=== PATIENT | male | born 1975 | race Caucasian/White ===

== ENCOUNTER 2021-09-26 14:34 | Emergency (ER) | payer OTHER ==
[2021-09-26 14:43] VITALS: RESP 20; BMI 29.5
[2021-09-26] MEDS ORDERED: ACETAMINOPHEN 500 MG TABLET (FP) PO ONE (15:14)
[2021-09-26] MEDS ORDERED: ACETAMINOPHEN 325 MG TABLET (FP) ONE (15:15)
[2021-09-26 16:57] VITALS: BP 115/62; PULSE 102; TEMP 101.6
[2021-09-26] MEDS ORDERED: SODIUM CHLORIDE 0.9% 500 ML INFUS.BAG IV ONE (17:17)
[2021-09-26 18:36] LABS: EPI CELLS 12 /uL (0-25.1); HYALINE CASTS 2 /uL (0-3.1); URINE APPEARANCE CLEAR; URINE BACTERIA 5 /uL (0-1359); URINE BILIRUBIN NEGATIVE (NEGATIVE); URINE COLOR YELLOW; URINE GLUCOSE (UA) NEGATIVE (NEGATIVE); URINE KETONE TRACE (NEGATIVE); URINE LEUK ESTERASE TRACE (NEGATIVE); URINE NITRITE NEGATIVE (NEGATIVE); URINE PROTEIN 1+ (NEGATIVE); URINE RBC 8 /uL (0-23.9); URINE WBC 56 /uL (0-25.8)
[2021-09-26] MEDS ORDERED: AZITHROMYCIN IVPB 500 MG/250 ML BAG IVPB ONE (18:43)
[2021-09-26 19:00] LABS: BASO % 0.2 % (0-2.0); EOS % 0.2 % (0-4.5); HEMATOCRIT 45.3 % (35.4-49); HEMOGLOBIN 15.3 GM/dL (11.7-16.9); LYMPH % 12.5 % (8-40); MCH 30.2 pg (25.7-33.7); MCHC 33.8 g/dl (32.0-35.9); MEAN CELL VOLUME 89.4 fl (80-96); MEAN PLT VOLUME 8.6 fl (7.5-11.1); NEUT % 78.1 % (42.8-82.8); PLATELET COUNT 236 10^3/uL (134-434); RBC 5.07 M/mm3 (4.00-5.60); RDW 14.2 % (11.9-15.9); WHITE BLOOD COUNT 16.1 K/mm3 (4.0-10.0)
[2021-09-26 19:03] LABS: INR 1.14 (0.83-1.09); PROTHROMBIN TIME (PATIENT) 13.1 SEC (9.7-13.0); VENOUS BASE EXCESS 1.4 mmol/L (-2-2); VENOUS O2 SATURATION 69.9 % (70-80); VENOUS PCO2 39.9 mmHg (38-52); VENOUS PH 7.428 (7.310-7.410)
[2021-09-26 19:05] LABS: ACTIVATED PTT 29.3 SECONDS (25.2-36.5)
[2021-09-26 19:16] LABS: CHLORIDE 107 mmol/L (98-107); SODIUM 140 mmol/L (136-145)
[2021-09-26 19:18] LABS: CALCIUM 8.6 mg/dL (8.5-10.1)
[2021-09-26 19:19] LABS: ALBUMIN 3.2 g/dl (3.4-5.0); ANION GAP 7 MMOL/L (8-16); BLOOD UREA NITROGEN 13.7 mg/dL (7-18); CO2 26 mmol/L (21-32); GLUCOSE,RANDOM 93 mg/dL (74-106)
[2021-09-26 19:22] LABS: CREATININE 1.1 mg/dL (0.55-1.3); SGOT/AST 23 U/L (15-37); SGPT/ALT 35 U/L (13-61)
[2021-09-26 19:24] LABS: BILIRUBIN,TOTAL 0.4 mg/dL (0.2-1); TOT PROT 7.5 g/dl (6.4-8.2)
[2021-09-26 19:25] LABS: ALK PHOS 80 U/L (45-117)
== END 2021-09-26 20:15 | disposition home or self-care (01) ==
LOC: JER 14:34
DX: S39.94XA Unspecified injury of external genitals, initial encounter (principal); W50.0XXA Accidental hit or strike by another person, initial encounter; Y93.71 Activity, boxing
CPT/HCPCS: 0241U-QW; 36415; 76870-TC; 80053; 81003; 82553; 82803; 83605; 85025; 85610; 85730; 86850; 86900; 86901; 87040; 87086; 96372; 96374; 99284-25